=== PATIENT | female | born 1950 | race Native Hawaiian/Other Pacific Islander ===

== ENCOUNTER 2022-07-21 09:02 | Outpatient (CLI) | payer OTHER | END 2022-07-21 19:28 | disposition home or self-care (01) | LOC: US 09:02 | PROVIDERS: ATTEND Internal Medicine Endocrinology, Diabetes & Metabolism | DX: R60.0 Localized edema (principal); R06.02 Shortness of breath | CPT/HCPCS: 36415; 82024; 82533; 84436; 84443; 84480; 84481 ==